=== PATIENT | male | born 1960 | race Caucasian/White ===

== ENCOUNTER 2016-09-14 14:08 | Emergency (ER) | payer MEDICARE, OTHER ==
[2016-09-14 14:42] VITALS: BP 143/93
--- NOTE | 2016-09-14 14:49 | UC ---
Respiratory Complaint HPI - HPI Summary HPI Summary: 55 year old patient presents with SOB at rest, post-nasal drip with light green mucus production, maxillary and ethmoid sinus congestion, pleuritic chest pain. First presenting symptoms was post nasal drip. Denies fever. - History of Current Complaint Chief Complaint: UCRespiratory Stated Complaint: COUGH Time Seen by Provider: 09/14/16 14:32 Hx Obtained From: Patient Onset/Duration: Gradual Onset Timing: Intermittent Episodes Severity Initially: Mild Character: Cough: Productive Associated Signs And Symptoms: Positive: Pleuritic Chest Pain, Nasal Congestion , Sinus Discomfort - Risk Factors Cardiac Risk Factors: Negative Pseudomonas Risk Factors: Negative Tuberculosis Risk Factors: Negative - Allergies/Home Medications Allergies/Adverse Reactions: Allergies Allergy/AdvReac Type Severity Reaction Status Date / Time Oxycodone AdvReac Intermediate GI Upset Verified 09/14/16 14:34 Home Medications: Home Medications Fluticasone Furoate-Vilanterol [Breo Ellipta 200-25 Mcg/INH] 1 inh IN DAILY 02/23 [History Confirmed 09/14/16] PMH/Surg Hx/FS Hx/Imm Hx Respiratory History Of: Reports: COPD GI/ History Of: Denies: Gastroesophageal Reflux Neurological History Of: Denies: TIA - Surgical History Surgical History: Yes Surgery Procedure, Year, and Place: fx jaw. Appendectomy - Social History Alcohol Use: None Substance Use Type: None Smoking Status (MU): Never Smoked Tobacco - Immunization History Most Recent Influenza Vaccination: has not had Most Recent Pneumonia Vaccination: 2013 Review of Systems Constitutional: Fatigue Skin: Negative Eyes: Negative ENT: Ear Ache, Nasal Discharge Respiratory: Shortness Of Breath, Cough Cardiovascular: Negative Gastrointestinal: Negative Genitourinary: Negative Motor: Negative Neurovascular: Negative Musculoskeletal: Negative Neurological: Negative Psychological: Negative All Other Systems Reviewed And Are Negative: Yes Physical Exam Triage Information Reviewed: Yes Appearance: Well-Appearing Vital Signs: Initial Vital Signs Temp 98.5 F 09/14/16 14:23 Pulse 89 09/14/16 14:23 Resp 16 09/14/16 14:23 BP 143/93 09/14/16 14:23 Pulse Ox 96 09/14/16 14:23 Vital Signs Reviewed: Yes Eye Exam: Normal Eyes: Positive: Conjunctiva Clear ENT: Positive: Pharynx normal, Nasal congestion, Nasal drainage, TMs normal Dental Exam: Normal Neck exam: Normal Neck: Positive: Supple, Nontender, No Lymphadenopathy Respiratory: Positive: Lungs clear, Normal breath sounds, No accessory muscle use, Decreased breath sounds, Other: - tenderness to touch Cardiovascular Exam: Normal Cardiovascular: Positive: RRR, No Murmur, Pulses Normal Abdominal Exam: Normal Abdomen Description: Positive: Nontender Bowel Sounds: Positive: Present Musculoskeletal Exam: Normal Musculoskeletal: Positive: Strength Intact Neurological Exam: Normal Neurological: Positive: Alert Psychological Exam: Normal Skin Exam: Normal UC Diagnostic Evaluation - Laboratory O2 Sat by Pulse Oximetry: 96 Re-Evaluation - Re-Evaluation First Eval Re-Evaluation Time: 15:25 Change: Improved - Audible breath sounds, dimished in the left posterior base, no accessory muscle use Respiratory Course/Dx - Differential Dx/Diagnosis Provider Diagnoses: Upper Respiratory Infection/COPD Discharge - Discharge Plan Condition: Stable Disposition: HOME Prescriptions: Azithromycin TAB* [Zithromax TAB*] 250 mg PO SEE INSTRUCTIONS #6 tab predniSONE TAB* [Deltasone TAB*] 50 mg PO DAILY #5 tab Patient Education Materials: COPD (Chronic Obstructive Pulmonary Disease) (ED) Referrals: SUNIL Lopez [Primary Care Provider] -
[2016-09-14] MEDS ORDERED: Albuterol/Ipratropium NEB.SOL* Albuterol 2.5 MG/Ipratropium 0.5 MG 3 ML INH ONE (14:59)
== END 2016-09-14 15:37 | disposition home or self-care (01) ==
LOC: UCCORT 14:08
DX: J06.9 Acute upper respiratory infection, unspecified (principal); J44.9 Chronic obstructive pulmonary disease, unspecified; Z88.5 Allergy status to narcotic agent
CPT/HCPCS: 99211; A9270-GY; G0463

== ENCOUNTER 2016-12-18 12:48 | Emergency (ER) | payer MEDICARE ==
[2016-12-18 13:03] VITALS: BP 136/70
--- NOTE | 2016-12-18 13:23 | UC ---
Respiratory Complaint HPI - HPI Summary HPI Summary: COUGH X 7 DAYS + CHEST CONGESTION , SOB , NO FEVER, NO CHILLS ? HX OF COPD - History of Current Complaint Chief Complaint: UCRespiratory Stated Complaint: SINUS,TROUBLE BREATHING Time Seen by Provider: 12/18/16 13:11 Hx Obtained From: Patient Onset/Duration: Gradual Onset, Lasting Days - 7, Still Present Timing: Constant Severity Initially: Moderate Severity Currently: Moderate Character: Cough: Nonproductive Aggravating Factors: Exertion, Deep Breaths Alleviating Factors: Nothing Associated Signs And Symptoms: Positive: Dyspnea, Wheezing, URI, Nasal Congestion - Allergies/Home Medications Allergies/Adverse Reactions: Allergies Allergy/AdvReac Type Severity Reaction Status Date / Time Oxycodone AdvReac Intermediate GI Upset Verified 12/18/16 13:03 Home Medications: Home Medications Umeclidinium [place] [Incruse Ellipta] 62.5 mcg IN QA 12/18/16 [History Confirmed 12/18/16] PMH/Surg Hx/FS Hx/Imm Hx Respiratory History Of: Reports: COPD GI/ History Of: Denies: Gastroesophageal Reflux Neurological History Of: Denies: TIA - Surgical History Surgical History: Yes Surgery Procedure, Year, and Place: fx jaw. Appendectomy - Family History Known Family History: Negative: Diabetes - Social History Alcohol Use: None Substance Use Type: None Smoking Status (MU): Never Smoked Tobacco - Immunization History Most Recent Influenza Vaccination: has not had Most Recent Pneumonia Vaccination: 2013 Review of Systems Constitutional: Chills, Fatigue Skin: Negative Eyes: Negative ENT: Nasal Discharge Respiratory: Shortness Of Breath, Cough Cardiovascular: Negative Gastrointestinal: Negative All Other Systems Reviewed And Are Negative: Yes Physical Exam Triage Information Reviewed: Yes Appearance: Well-Appearing, No Pain Distress, Well-Nourished Vital Signs: Initial Vital Signs Temp 99.1 F 12/18/16 12:54 Pulse 88 12/18/16 12:54 Resp 20 12/18/16 12:54 BP 136/70 12/18/16 12:54 Pulse Ox 95 12/18/16 12:54 Vital Signs Reviewed: Yes Eye Exam: Normal Eyes: Positive: Conjunctiva Clear ENT: Positive: Normal ENT inspection, Hearing grossly normal, Pharynx normal, TMs normal. Negative: Nasal congestion, Nasal drainage Neck exam: Normal Neck: Positive: Supple, Nontender, No Lymphadenopathy Respiratory: Positive: Chest non-tender, Decreased breath sounds Cardiovascular: Positive: RRR, No Murmur, Pulses Normal Skin Exam: Normal UC Diagnostic Evaluation - Laboratory O2 Sat by Pulse Oximetry: 95 Respiratory Course/Dx - Differential Dx/Diagnosis Provider Diagnoses: BRONCHITIS Discharge - Discharge Plan Condition: Stable Disposition: HOME Prescriptions: Azithromycin TAB* [Zithromax TAB (Z-KATHY) 250 mg #6 tabs] 2 tab PO .TODAY, THEN 1 DAILY #1 kathy predniSONE TAB* [Deltasone TAB*] 40 mg PO DAILY #10 tab Patient Education Materials: Acute Bronchitis (ED) Referrals: SUNIL Lopez [Primary Care Provider] - 7 Days
== END 2016-12-18 13:51 | disposition home or self-care (01) ==
LOC: UCCORT 12:48
DX: J40 Bronchitis, not specified as acute or chronic (principal); Z88.5 Allergy status to narcotic agent
CPT/HCPCS: 99212; G0463

== ENCOUNTER 2016-12-25 12:05 | Emergency (ER) | payer MEDICARE ==
[2016-12-25 12:45] VITALS: BP 135/86
--- NOTE | 2016-12-25 12:59 | UC ---
Respiratory Complaint HPI - HPI Summary HPI Summary: cough x 2 weeks. productive, with yellow sputum. was seen at the urgent care one week ago , was placed on zpak and prednisone some improvement at first but now the cough is getting bad again no fever, no chills , + nasal congestion , + SOB - History of Current Complaint Chief Complaint: UCRespiratory Stated Complaint: RE CHECK COUGH,CHEST CONGESTION Time Seen by Provider: 12/25/16 12:36 Hx Obtained From: Patient Onset/Duration: Gradual Onset, Lasting Days - 14, Still Present Timing: Constant Severity Initially: Moderate Severity Currently: Moderate Character: Cough: Productive - yellow Aggravating Factors: Exertion, Deep Breaths Alleviating Factors: Nothing Associated Signs And Symptoms: Positive: Dyspnea, Fever, Chills, Wheezing, URI, Nasal Congestion - Allergies/Home Medications Allergies/Adverse Reactions: Allergies Allergy/AdvReac Type Severity Reaction Status Date / Time Oxycodone AdvReac Intermediate GI Upset Verified 12/25/16 12:39 PMH/Surg Hx/FS Hx/Imm Hx Respiratory History Of: Reports: COPD GI/ History Of: Denies: Gastroesophageal Reflux Neurological History Of: Denies: TIA - Surgical History Surgical History: Yes Surgery Procedure, Year, and Place: fx jaw. Appendectomy - Family History Known Family History: Negative: Diabetes - Social History Alcohol Use: None Substance Use Type: None Smoking Status (MU): Never Smoked Tobacco - Immunization History Most Recent Influenza Vaccination: has not had Most Recent Pneumonia Vaccination: 2013 Review of Systems Constitutional: Fever, Chills, Fatigue Skin: Negative Eyes: Negative ENT: Nasal Discharge Respiratory: Shortness Of Breath, Cough Cardiovascular: Negative Gastrointestinal: Negative All Other Systems Reviewed And Are Negative: Yes Physical Exam Triage Information Reviewed: Yes Appearance: Well-Appearing, No Pain Distress, Well-Nourished Vital Signs: Initial Vital Signs Temp 99.1 F 12/25/16 12:41 Pulse 82 12/25/16 12:41 Resp 18 12/25/16 12:41 BP 135/86 12/25/16 12:41 Pulse Ox 96 12/25/16 12:41 Vital Signs Reviewed: Yes Eye Exam: Normal Eyes: Positive: Conjunctiva Clear ENT: Positive: Normal ENT inspection, Hearing grossly normal, Nasal congestion Neck: Positive: Supple, Nontender, No Lymphadenopathy Respiratory: Positive: Chest non-tender, Lungs clear, Normal breath sounds, No respiratory distress Cardiovascular: Positive: RRR, No Murmur, Pulses Normal Skin Exam: Normal UC Diagnostic Evaluation - Laboratory O2 Sat by Pulse Oximetry: 96 Diagnostic Studies Comment: chest xray : + small right side infiltrate Respiratory Course/Dx - Differential Dx/Diagnosis Provider Diagnoses: pneumonia Discharge - Discharge Plan Condition: Stable Disposition: HOME Prescriptions: Levofloxacin TAB* [Levaquin TAB*] 500 mg PO DAILY #10 tab Patient Education Materials: Pneumonia (ED) Referrals: SUNIL Lopez [Primary Care Provider] - 7 Days
--- NOTE | 2016-12-25 13:12 | RAD ---
INDICATION: Cough COMPARISON: October 09, 2014 TECHNIQUE: PA and lateral dual-energy views were obtained. FINDINGS: Bones/Soft Tissues: There are no acute bony findings. Cardiomediastinal: The cardiomediastinal silhouette is normal. Lungs: There is a small interstitial infiltrate in the inferior segment of the right upper lobe and in the right middle lobe. There are no other infiltrates. Pleura: There are no pleural effusions. Other: None IMPRESSION: Small right-sided infiltrates.
== END 2016-12-25 13:31 | disposition home or self-care (01) ==
LOC: UCCORT 12:05
DX: J18.9 Pneumonia, unspecified organism (principal); Z88.5 Allergy status to narcotic agent; J44.9 Chronic obstructive pulmonary disease, unspecified
CPT/HCPCS: 71020; 99212; G0463

== ENCOUNTER 2017-06-05 12:25 | Emergency (ER) | payer MEDICARE ==
[2017-06-05 13:25] VITALS: BP 133/91
--- NOTE | 2017-06-05 13:49 | UC ---
Dental HPI - HPI Summary HPI Summary: he has had dental pain since Saturday. He filled bought a bottle of tylenol 650mg tabs on saturday night and has taken 42 of then since. He does nto have dental insurance and was trying to deal with the pain. He now has swelling and tenderness of the right face along with swelling and trismus. - History of Current Complaint Chief Complaint: UCDentalProblem Stated Complaint: ORAL/JAW PAIN Time Seen by Provider: 06/05/17 13:35 Hx Obtained From: Patient Onset/Duration: Gradual Onset, Lasting Days Severity: Severe Aggravating Factor(s): Chewing Alleviating Factor(s): OTC Meds Related History: Swelling - Allergies/Home Medications Allergies/Adverse Reactions: Allergies Allergy/AdvReac Type Severity Reaction Status Date / Time Oxycodone AdvReac Intermediate GI Upset Verified 06/05/17 13:15 Home Medications: Home Medications Acetaminophen [Tylenol] 650 mg PO Q2H PRN 06/05/17 [History Confirmed 06/05/17] Amphetamine-Dextroamphetamine [Adderall 5 mg-] 25 mg PO DAILY 06/05/17 [History Confirmed 06/05/17] PMH/Surg Hx/FS Hx/Imm Hx Previously Healthy: No - adhd. - Surgical History Surgical History: Yes Surgery Procedure, Year, and Place: fx jaw. Appendectomy - Family History Known Family History: Negative: Diabetes - Social History Occupation: Employed Full-time Alcohol Use: None Substance Use Type: None Smoking Status (MU): Never Smoked Tobacco - Immunization History Most Recent Influenza Vaccination: has not had Most Recent Pneumonia Vaccination: 2013 Review of Systems ENT: Dental Pain All Other Systems Reviewed And Are Negative: Yes Physical Exam Triage Information Reviewed: Yes Appearance: Well-Appearing, No Pain Distress, Well-Nourished Vital Signs: Initial Vital Signs Temp 98.3 F 06/05/17 13:22 Pulse 81 06/05/17 13:22 Resp 16 06/05/17 13:22 BP 133/91 06/05/17 13:22 Pulse Ox 96 06/05/17 13:22 Vital Signs Reviewed: Yes Eyes: Positive: Conjunctiva Clear ENT: Positive: Trismus, Other: - right maxilla and lower jaw tenderness and swelling. there is severe dental decay of the right lower jaw/teeth. Neck exam: Normal Neck: Positive: Tenderness @, Enlarged Nodes @ - right submandibular. Respiratory: Positive: No respiratory distress, No accessory muscle use Cardiovascular: Positive: Brisk Capillary Refill Abdomen Description: Positive: Other: - ruq tenderness. Musculoskeletal: Positive: Strength Intact, ROM Intact, No Edema Neurological: Positive: Alert, Muscle Tone Normal Skin: Negative: rashes Dental Complaint Course/Dx - Course Course Of Treatment: he has had 37K of tylenol in less than 48 hours. he will need IV antibiotics and a tylenol level. - Differential Dx/Diagnosis Provider Diagnoses: unintentional tylenol overdose. dental abcess. Discharge - Discharge Plan Condition: Guarded Disposition: TRANS HIGHER LVL OF CARE FAC Referrals: SUNIL Lopez [Primary Care Provider] -
--- NOTE | 2017-06-05 13:56 | ED ---
Progress - Progress Note Progress Note: D/w bria sage at [facility] for transfer. Course/Dx - Course Course Of Treatment: he has had 37K of tylenol in less than 48 hours. he will need IV antibiotics and a tylenol level. - Diagnoses Provider Diagnoses: Tylenol overdose
== END 2017-06-05 13:52 ==
LOC: UCCORT 12:25
DX: K04.7 Periapical abscess without sinus (principal); T39.1X1A Poisoning by 4-Aminophenol derivatives, accidental (unintentional), initial encounter; Y92.9 Unspecified place or not applicable
CPT/HCPCS: 99211; G0463

== ENCOUNTER 2018-03-26 10:10 | Emergency (ER) | payer MEDICARE ==
--- NOTE | 2018-03-26 10:44 | UC ---
Respiratory Complaint HPI - HPI Summary HPI Summary: Cough and congestion for about 10 days. he says this is similar to prior bronchitis. he has copd and has been compliant with BReo and rescue inhalers. No fever. No hemoptysis. No calf pain. - History of Current Complaint Stated Complaint: COUGH, CONGESTION Time Seen by Provider: 03/26/18 10:34 Hx Obtained From: Patient Onset/Duration: Gradual Onset, Lasting Days Timing: Constant Severity Initially: Moderate Severity Currently: Moderate Character: Cough: Nonproductive Aggravating Factors: Deep Breaths, Recumbent Position Alleviating Factors: Upright Position, Spontaneous Resolution Associated Signs And Symptoms: Positive: Wheezing, URI, Nasal Congestion, Hoarseness. Negative: Fever, Chills, Pleuritic Chest Pain, Hemoptysis, Calf Pain, Calf Swelling - Allergies/Home Medications Allergies/Adverse Reactions: Allergies Allergy/AdvReac Type Severity Reaction Status Date / Time oxycodone Allergy GI Upset Verified 03/26/18 10:39 Home Medications: Home Medications Atomoxetine HCl [Strattera] 80 mg PO DAILY 03/26/18 [History Confirmed 03/26/18] PMH/Surg Hx/FS Hx/Imm Hx Previously Healthy: No - copd - Surgical History Surgical History: Yes Surgery Procedure, Year, and Place: fx jaw. Appendectomy - Family History Known Family History: Negative: Diabetes - Social History Alcohol Use: None Substance Use Type: None Smoking Status (MU): Never Smoked Tobacco - Immunization History Most Recent Influenza Vaccination: has not had Most Recent Pneumonia Vaccination: 2013 Review of Systems ENT: Sinus Congestion Respiratory: Cough All Other Systems Reviewed And Are Negative: Yes Physical Exam Triage Information Reviewed: Yes Appearance: Well-Appearing, No Pain Distress, Well-Nourished Vital Signs Reviewed: Yes Eye Exam: Normal Eyes: Negative: Conjunctiva Clear, Conjunctiva Inflamed ENT: Positive: Normal ENT inspection, Hearing grossly normal, Pharynx normal, Nasal congestion, TMs normal, Hoarse voice, Uvula midline. Negative: Pharyngeal erythema, TM bulging, TM dull, TM red, Tonsillar swelling, Tonsillar exudate, Trismus, Muffled voice, Dental tenderness, Sinus tenderness Neck: Positive: Supple, Nontender, No Lymphadenopathy Respiratory: Positive: Lungs clear - Frequent dry cough., Normal breath sounds, No respiratory distress, No accessory muscle use. Negative: Respiratory distress, Decreased breath sounds, Accessory muscle use, Crackles, Rhonchi, Stridor, Wheezing Cardiovascular: Positive: No Murmur, Pulses Normal, Brisk Capillary Refill Abdomen Description: Positive: No Organomegaly, Soft. Negative: Distended, Guarding Musculoskeletal: Positive: Strength Intact, ROM Intact, No Edema Neurological: Positive: Alert, Muscle Tone Normal. Negative: Fatigued Psychological: Positive: Age Appropriate Behavior Skin: Negative: rashes Respiratory Course/Dx - Course Course Of Treatment: No distress but there is frequent cough and this has been 10 days. He agrees to return for any worsening. - Differential Dx/Diagnosis Provider Diagnoses: acute bronchitis. Discharge - Sign-Out/Discharge Documenting (check all that apply): Patient Departure - Discharge Plan Condition: Stable Disposition: HOME Prescriptions: Azithromyxin KATHY (NF) [Z-Kathy (Zithromax) 250 mg tabs #6] 2 tab PO .TODAY, THEN 1 DAILY #6 tab methylPREDNISolone [Medrol] 4 mg PO DAILY #21 tab.[id number].[email or web address] Patient Education Materials: Acute Bronchitis (ED) Referrals: Quentin Luo MD [Primary Care Provider] - - Billing Disposition and Condition Condition: STABLE Disposition: Home
[2018-03-26 10:45] VITALS: BP 148/87
== END 2018-03-26 10:46 | disposition home or self-care (01) ==
LOC: UCCORT 10:10
DX: J20.9 Acute bronchitis, unspecified (principal); J44.9 Chronic obstructive pulmonary disease, unspecified; Z88.5 Allergy status to narcotic agent
CPT/HCPCS: 99212; G0463

== ENCOUNTER 2018-04-23 19:52 | Emergency (ER) | payer MEDICARE ==
[2018-04-23 20:10] VITALS: BP 143/90
--- NOTE | 2018-04-23 20:16 | UC ---
Respiratory Complaint HPI - HPI Summary HPI Summary: The patient is a 57-year-old male with a history of COPD. He states that he has had worsening breathing over the past few days. He denies any fever or chills. He does feel somewhat short of breath. He has been admitted in the past for trouble breathing. Denies ever being intubated. He has had to take steroids in the past. He denies any chest pain. - History of Current Complaint Stated Complaint: TROUBLE BREATHING Time Seen by Provider: 04/23/18 20:05 Hx Obtained From: Patient Onset/Duration: Sudden Onset, Lasting Days Timing: Constant Severity Initially: Mild Severity Currently: Moderate Pain Intensity: 0 Pain Scale Used: 0-10 Numeric Character: Cough: Nonproductive Aggravating Factors: Deep Breaths Alleviating Factors: Bronchodilator Associated Signs And Symptoms: Positive: Wheezing - Allergies/Home Medications Allergies/Adverse Reactions: Allergies Allergy/AdvReac Type Severity Reaction Status Date / Time oxycodone Allergy GI Upset Verified 04/23/18 20:10 PMH/Surg Hx/FS Hx/Imm Hx Previously Healthy: Yes Respiratory History: COPD, Bronchitis, Pneumonia - Surgical History Surgical History: Yes Surgery Procedure, Year, and Place: fx jaw. Appendectomy. left wrist. left leg - Family History Known Family History: Positive: Hypertension Negative: Diabetes - Social History Alcohol Use: None Substance Use Type: None Smoking Status (MU): Never Smoked Tobacco When Did the Patient Quit Smoking/Using Tobacco: 9 years ago- cigar - Immunization History Most Recent Influenza Vaccination: has not had Most Recent Pneumonia Vaccination: 2013 Review of Systems Constitutional: Negative Skin: Negative Eyes: Negative ENT: Negative Respiratory: Shortness Of Breath, Cough Cardiovascular: Negative Gastrointestinal: Negative Genitourinary: Negative Motor: Negative Neurovascular: Negative Musculoskeletal: Negative Neurological: Negative Psychological: Negative Is Patient Immunocompromised?: No All Other Systems Reviewed And Are Negative: Yes Physical Exam Triage Information Reviewed: Yes Appearance: Well-Appearing, No Pain Distress, Well-Nourished Vital Signs: Initial Vital Signs Temp 99.2 F 04/23/18 20:07 Pulse 100 04/23/18 20:07 Resp 20 04/23/18 20:07 BP 143/90 04/23/18 20:07 Pulse Ox 97 04/23/18 20:07 Eye Exam: Normal ENT: Positive: Hearing grossly normal. Negative: Nasal congestion, Nasal drainage, Trismus, Muffled voice, Hoarse voice Neck: Positive: Supple, Nontender Respiratory: Positive: No respiratory distress, No accessory muscle use, Wheezing Cardiovascular: Positive: RRR, No Murmur Musculoskeletal: Positive: ROM Intact, No Edema Neurological: Positive: Alert Psychological Exam: Normal Skin Exam: Normal UC Diagnostic Evaluation - Laboratory O2 Sat by Pulse Oximetry: 97 - normal/not hypoxic Re-Evaluation - Re-Evaluation First Eval Re-Evaluation Time: 20:59 Change: Improved - better air movement/no wheezing Respiratory Course/Dx - Differential Dx/Diagnosis Provider Diagnoses: acute exacerbation of COPD Discharge - Sign-Out/Discharge Documenting (check all that apply): Patient Departure - Discharge Plan Condition: Stable Disposition: HOME Referrals: Quentin Luo MD [Primary Care Provider] - - Billing Disposition and Condition Condition: STABLE Disposition: Home
[2018-04-23] MEDS ORDERED: Albuterol 2.5 MG/3 ML NEB.SOL* (0.083%) INH ONE (20:21)
[2018-04-23] MEDS ORDERED: Ipratropium 0.5MG/2.5ML NEB* 0.5 MG/2.5 ML NEB.SOLN INH ONE (20:21)
[2018-04-23] MEDS ORDERED: predniSONE TAB* 20 MG PO ONE (20:21)
[2018-04-23] MEDS ORDERED: Azithromycin TAB* 250 MG PO ONE (20:21)
== END 2018-04-23 21:13 | disposition home or self-care (01) ==
LOC: UCCORT 19:52
DX: J44.1 Chronic obstructive pulmonary disease with (acute) exacerbation (principal); Z88.5 Allergy status to narcotic agent
CPT/HCPCS: 93005; 99213; A9270-GY; G0463; J7512

== ENCOUNTER 2018-04-29 19:11 | Emergency (ER) | payer MEDICARE ==
[2018-04-29 20:19] VITALS: BP 135/85
[2018-04-29] MEDS ORDERED: Albuterol/Ipratropium NEB.SOL* Albuterol 2.5 MG/Ipratropium 0.5 MG 3 ML INH ONE (20:31)
--- NOTE | 2018-04-29 20:33 | UC ---
Respiratory Complaint HPI - HPI Summary HPI Summary: Pt presents with worsening cough. Pt was seen here on 04/23/18 with c/o cough and chest congestion. Pt was diagnosed with acute bronchitis and given prednisone, and z-pac. Pt reports that he began to feel better ~ two days after taking medication but after completing medications , he began to cough again, now feels like cough is worsening. - History of Current Complaint Chief Complaint: UCGeneralIllness Stated Complaint: RESPIRATORY Time Seen by Provider: 04/29/18 20:28 Hx Obtained From: Patient Onset/Duration: Gradual Onset, Lasting Days, Still Present, Worse Since - onset Timing: Intermittent Episodes Severity Initially: Mild Severity Currently: Moderate Pain Intensity: 0 Character: Cough: Nonproductive Aggravating Factors: Exertion, Deep Breaths, Recumbent Position Alleviating Factors: Nothing Associated Signs And Symptoms: Positive: Wheezing, URI - Risk Factors Pulmonary Embolism Risk Factors: Negative Cardiac Risk Factors: Negative Pseudomonas Risk Factors: Negative Tuberculosis Risk Factors: Corticosteriod Use - recent RX - Allergies/Home Medications Allergies/Adverse Reactions: Allergies Allergy/AdvReac Type Severity Reaction Status Date / Time oxycodone Allergy GI Upset Verified 04/29/18 20:19 PMH/Surg Hx/FS Hx/Imm Hx Previously Healthy: Yes - Surgical History Surgical History: Yes Surgery Procedure, Year, and Place: fx jaw. Appendectomy. left wrist. left leg - Family History Known Family History: Positive: Hypertension Negative: Diabetes - Social History Occupation: Employed Full-time Lives: With Family Alcohol Use: None Substance Use Type: None Smoking Status (MU): Never Smoked Tobacco Have You Smoked in the Last Year: No When Did the Patient Quit Smoking/Using Tobacco: 9 years ago- cigar - Immunization History Most Recent Influenza Vaccination: has not had Most Recent Pneumonia Vaccination: 2013 Review of Systems Constitutional: Negative Skin: Negative Eyes: Negative ENT: Negative Respiratory: Cough Cardiovascular: Negative Gastrointestinal: Negative Genitourinary: Negative Motor: Negative Neurovascular: Negative Musculoskeletal: Negative Neurological: Negative Psychological: Negative Is Patient Immunocompromised?: No All Other Systems Reviewed And Are Negative: Yes Physical Exam Triage Information Reviewed: Yes Appearance: Ill-Appearing Vital Signs: Initial Vital Signs Temp 98.8 F 04/29/18 20:14 Pulse 92 04/29/18 20:14 Resp 18 04/29/18 20:14 BP 135/85 04/29/18 20:14 Pulse Ox 95 04/29/18 20:14 Vital Signs Reviewed: Yes Eye Exam: Normal ENT Exam: Normal Neck exam: Normal Respiratory: Positive: Wheezing Cardiovascular Exam: Normal Musculoskeletal Exam: Normal Neurological Exam: Normal Psychological Exam: Normal Skin Exam: Normal UC Diagnostic Evaluation - Laboratory O2 Sat by Pulse Oximetry: 95 Respiratory Course/Dx - Course Course Of Treatment: Xray not read by radilogist. My interpretation: Left lower lobe infiltrate - Differential Dx/Diagnosis Differential Diagnosis/HQI/PQRI: Bronchitis, Exacerbation Of COPD Provider Diagnoses: pneumonia Discharge - Sign-Out/Discharge Documenting (check all that apply): Patient Departure All imaging exams completed and their final reports reviewed: No - Discharge Plan Condition: Stable Disposition: HOME-RECOMMEND TO ED Prescriptions: Albuterol 2.5MG/3ML (0.083%)* [Ventolin 2.5 MG/3 ML NEB.MOIZ*] 2.5 mg INH Q4H #1 box Cetirizine* [ZyrTEC 10 MG TAB*] 10 mg PO DAILY #10 tab DOXYcycline CAP(*) [DOXYcycline 100MG CAP(*)] 100 mg PO Q12H #20 cap predniSONE TAB* [Deltasone 10 MG TAB*] 30 mg PO DAILY #12 tab Patient Education Materials: Pneumonia (ED) Referrals: Quentin Luo MD [Primary Care Provider] - As Soon As Possible Additional Instructions: It is recommended that you go to the Emergency room for further evaluation, testing and treatment. - Billing Disposition and Condition Condition: STABLE Disposition: Home-Recommend to ED Attestation Statement User Type: Provider - I was available for consult. This patient was seen by the JHONY. The patient was not presented to, seen by, or examined by me. -Taj
[2018-04-29] MEDS ORDERED: predniSONE TAB* 20 MG PO ONE (21:18)
[2018-04-29] MEDS ORDERED: Benzonatate CAP* 100 MG PO ONE (21:22)
[2018-04-29] MEDS ORDERED: DOXYcycline CAP(*) 100 MG PO ONE (21:23)
--- NOTE | 2018-04-30 08:05 | RAD ---
INDICATION: Shortness of breath wheezing and cough. COMPARISON: Comparison is made with prior chest x-ray studies from July 09, 2015 and December 25, 2016. TECHNIQUE: Dual-energy PA and lateral views of the chest were obtained. FINDINGS: The heart is within normal limits in size. Mediastinal and hilar contours appear within normal limits. There is a patchy infiltrate present in the mid and lower right lung field and a small infiltrate at the left lung base. No pleural effusion is seen. The results of this exam were called to Dr. Doherty. IMPRESSION: BILATERAL INFILTRATES. R1
--- NOTE | 2018-04-30 09:46 | UC ---
- Progress Note Progress Note: Pt on doxy, dx PNA Patient Name: GIRISH GIBSON Medical Record#: [id number] Ordering Physician: Emily Cage OPHTHALMOLOGY SURGICAL TECHNICIAN Acct.#: [id number] : 1960 Age: 57 Sex: M Location: [facility] Exam Date: 04/29/182050 ADM Status: DEP ER Order Information: CHEST PA & LAT 2 VWS Accession Number: [id number] CPT: 20009 INDICATION: Shortness of breath wheezing and cough. COMPARISON: Comparison is made with prior chest x-ray studies from July 09, 2015 and December 25, 2016. TECHNIQUE: Dual-energy PA and lateral views of the chest were obtained. FINDINGS: The heart is within normal limits in size. Mediastinal and hilar contours appear within normal limits. There is a patchy infiltrate present in the mid and lower right lung field and a small infiltrate at the left lung base. No pleural effusion is seen. The results of this exam were called to Dr. Doherty. IMPRESSION: BILATERAL INFILTRATES. R1 <Electronically signed by Derik Carreon MD in OV> 04/30/18 0801 Dictated By: Derik Carreon MD Dictated Date/Time: 04/30/18 0801 Transcribed Date/Time: 04/30/18 2617 Copy to: CC:Quentin Luo MD; Alesia Doherty MD; Emily Cage NP Imaging - [facility] Imaging - [facility] [facility] [address] [address] ph ([phone]) ph ([phone]) ph ([phone]) This report is only to be considered final once signed by the Provider(s) as displayed in the "<Electronically Signed by >" field (s). Absence of a signature indicates the report is in a draft status and still needs to be finalized. In the event this document was created by someone other than the signing Provider, the individual initiating the document will be listed in the "Entered by:" or "Dictated by:" núñez. 1 of 1 Discharge - Sign-Out/Discharge Documenting (check all that apply): Post-Discharge Follow Up All imaging exams completed and their final reports reviewed: Yes - Discharge Plan Condition: Stable Disposition: HOME-RECOMMEND TO ED Prescriptions: Albuterol 2.5MG/3ML (0.083%)* [Ventolin 2.5 MG/3 ML NEB.MOIZ*] 2.5 mg INH Q4H #1 box Cetirizine* [ZyrTEC 10 MG TAB*] 10 mg PO DAILY #10 tab DOXYcycline CAP(*) [DOXYcycline 100MG CAP(*)] 100 mg PO Q12H #20 cap predniSONE TAB* [Deltasone 10 MG TAB*] 30 mg PO DAILY #12 tab Patient Education Materials: Pneumonia (ED) Referrals: Quentin Luo MD [Primary Care Provider] - As Soon As Possible Additional Instructions: It is recommended that you go to the Emergency room for further evaluation, testing and treatment. - Billing Disposition and Condition Condition: STABLE Disposition: Home-Recommend to ED
== END 2018-04-29 21:41 | disposition home health service (06) ==
LOC: UCCORT 19:11
DX: Z88.5 Allergy status to narcotic agent (principal); J18.9 Pneumonia, unspecified organism
CPT/HCPCS: 71046; 99213; A9270-GY; G0463; J7512

== ENCOUNTER 2018-09-11 17:29 | Emergency (ER) | payer MEDICARE ==
[2018-09-11 18:05] VITALS: BP 149/104
--- NOTE | 2018-09-11 18:34 | ED ---
Respiratory - HPI Summary HPI Summary: 57 yr old male with the complaint of runny nose, post nasal drip, coughing. He feels like his COPD is getting exacerbated by his sinuses. He feels mildly short of breath. He denies fever, chills. Denies chest pain. Denies dizziness. Onset of symptoms over two weeks ago. He also has pressure in the left ear. - History of Current Complaint Chief Complaint: UCGeneralIllness Stated Complaint: COUGH Time Seen by Provider: 09/11/18 18:17 Pain Intensity: 7 - Allergy/Home Medications Allergies/Adverse Reactions: Allergies Allergy/AdvReac Type Severity Reaction Status Date / Time oxycodone Allergy GI Upset Verified 09/11/18 17:53 Home Medications: Home Medications Dextroamphetamine/Amphetamine [Adderall 20 mg Tablet] 1 tab PO DAILY 09/11/18 [ History Confirmed 09/11/18] PMH/Surg Hx/FS Hx/Imm Hx Endocrine/Hematology History: Reports: Hx Diabetes - pre Respiratory History: Reports: Hx Chronic Obstructive Pulmonary Disease (COPD) Neurological History: Denies: Hx Transient Ischemic Attacks (TIA) - Surgical History Surgery Procedure, Year, and Place: fx jaw. Appendectomy. left wrist. left leg Infectious Disease History: No Infectious Disease History: Denies: Hx Clostridium Difficile, Hx Hepatitis, Hx Human Immunodeficiency Virus (HIV), Hx of Known/Suspected MRSA, Hx Shingles, Hx Tuberculosis, Hx Known/ Suspected VRE, Hx Known/Suspected VRSA, History Other Infectious Disease, Traveled Outside the [place] in Last 30 Days - Family History Known Family History: Positive: Hypertension Negative: Diabetes - Social History Occupation: Employed Full-time Alcohol Use: None Substance Use Type: Reports: None Smoking Status (MU): Former Smoker Have You Smoked in the Last Year: No Review of Systems Constitutional: Negative Positive: Sore Throat, Nasal Discharge Positive: Cough All Other Systems Reviewed And Are Negative: Yes Physical Exam Triage Information Reviewed: Yes Vital Signs On Initial Exam: Initial Vitals Temp Pulse Resp BP Pulse Ox 98.4 F 87 16 149/104 96 09/11/18 17:59 09/11/18 17:59 09/11/18 17:59 09/11/18 17:59 09/11/18 17:59 Vital Signs Reviewed: Yes Appearance: Positive: Well-Appearing, No Pain Distress Skin: Positive: Warm, Skin Color Reflects Adequate Perfusion Head/Face: Positive: Normal Head/Face Inspection Eyes: Positive: EOMI ENT: Positive: Normal ENT inspection, Nasal congestion, Nasal drainage, TMs normal, Sinus tenderness Respiratory/Lung Sounds: Positive: Clear to Auscultation, Breath Sounds Present Cardiovascular: Positive: RRR. Negative: Murmur Abdomen Description: Negative: Distended Musculoskeletal: Positive: Strength/ROM Intact Neurological: Positive: Sensory/Motor Intact, Alert, Oriented to Person Place, Time, CN Intact II-III Psychiatric: Positive: Normal Diagnostics - Vital Signs Vital Signs Temp Pulse Resp BP Pulse Ox 09/11/18 17:59 98.4 F 87 16 149/104 96 - Laboratory Lab Statement: Any lab studies that have been ordered have been reviewed, and results considered in the medical decision making process. Disposition - Course Course Of Treatment: 57 yr old with sinusitis, and exacerbation of coughing and copd. refills of his inhalers, and nebs, steroids and biaxin given. - Diagnoses Provider Diagnoses: Sinusitis Discharge - Sign-Out/Discharge Documenting (check all that apply): Patient Departure All imaging exams completed and their final reports reviewed: No Studies - Discharge Plan Condition: Good Disposition: HOME Prescriptions: Albuterol 2.5MG/3ML (0.083%)* [Ventolin 2.5 MG/3 ML NEB.MOIZ*] 2.5 mg INH Q4H #1 box Albuterol HFA INHALER* [Ventolin HFA Inhaler*] 1 - 2 puff INH Q4H PRN #1 mdi PRN Reason: Shortness Of Breath Clarithromycin TAB* [Biaxin 500 MG TAB*] 500 mg PO BID #20 tab predniSONE TAB* [Deltasone 20 MG TAB*] 40 mg PO DAILY #8 tab Patient Education Materials: Sinusitis (ED), COPD (Chronic Obstructive Pulmonary Disease) (ED), Hypertension (ED) Referrals: Quentin Luo MD [Primary Care Provider] - 2 Days - Billing Disposition and Condition Condition: GOOD Disposition: Home
== END 2018-09-11 18:41 | disposition home or self-care (01) ==
LOC: UCCORT 17:29
DX: J32.9 Chronic sinusitis, unspecified (principal); Z88.5 Allergy status to narcotic agent; Z87.891 Personal history of nicotine dependence
CPT/HCPCS: 99212; G0463

== ENCOUNTER 2018-09-15 15:31 | Emergency (ER) | payer MEDICARE ==
[2018-09-15 15:58] VITALS: BP 138/81
--- NOTE | 2018-09-15 16:59 | UC ---
Throat Pain/Nasal [place] HPI - HPI Summary HPI Summary: Patient presents to urgent care for recheck of his congestion which has now settled in his chest. Patient was seen here on 09/11 and diagnosed with sinusitis. Patient was started on Biaxin 500 mg twice a day. Patient's been using this as well as an MDI. Patient states it's noticed chest. Patient's concerned he developing pneumonia. Patient states in the past the only thing that has worked for him is doxycycline. Patient states he is to get a Z-Dann that didn't help and he does not feel the Biaxin a strong enough. Patient states he's coughing up yellow sputum. Patient states he's wheezing. Patient is using a nebulizer with mild improvement. Patient denies fevers or chills. Patient states he has coughing paroxysms that wake him up at night. 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 Pt has been taking 1000mg Biaxin QAM because he thought would be "stronger"Patient states he 's been hospitalized with pneumonia in the past with concerned he's had it there again. Patient states he hears mostly wheezing on his right side. Patient states he had something similar in April and was treated with doxycycline that helped. Patient medications reviewed this visit. - History of Current Complaint Chief Complaint: UCRespiratory Stated Complaint: CHEST CONGESTION Time Seen by Provider: 09/15/18 16:56 Hx Obtained From: Patient, Medical Records Severity: Moderate Pain Intensity: 8 - Allergies/Home Medications Allergies/Adverse Reactions: Allergies Allergy/AdvReac Type Severity Reaction Status Date / Time oxycodone Allergy GI Upset Verified 09/15/18 15:58 PMH/Surg Hx/FS Hx/Imm Hx Previously Healthy: Yes Respiratory History: COPD - Surgical History Surgical History: Yes Surgery Procedure, Year, and Place: fx jaw. Appendectomy. left wrist. left leg - Family History Known Family History: Positive: Hypertension, Non-Contributory Negative: Diabetes - Social History Occupation: Disabled Lives: With Family Alcohol Use: None Substance Use Type: None Smoking Status (MU): Former Smoker Have You Smoked in the Last Year: No When Did the Patient Quit Smoking/Using Tobacco: 9 years ago- cigar - Immunization History Most Recent Influenza Vaccination: has not had Most Recent Pneumonia Vaccination: 2013 Review of Systems All Other Systems Reviewed And Are Negative: Yes Constitutional: Positive: Fatigue ENT: Positive: Nasal Discharge, Sinus Congestion Respiratory: Positive: Shortness Of Breath, Cough Cardiovascular: Positive: Negative Physical Exam - Summary Physical Exam Summary: Vital Signs Reviewed: Yes A+Ox3, coarse cough, intermittent Eyes: Conjunctiva Clear, ERNA. EOM intact and full ENT: Hearing grossly normal TM x 2 clear, turbinates inflammed, + PND, mmoist, uvula midline, no exudate, no erythema Neck: Positive: Supple Respiratory: Positive: coarse cough, wheeze, right sided rhonci Cardiovascular: RRR nl s1, s2 no m/r CBT <2 sec abd soft + BS nt/nd no guarding, no distension Musculoskeletal Exam: BELL x 4 without difficulty Strength Intact, ROM Intact Neurological: Positive: Alert, + sensation throughout Psychological: Positive: Normal Response To Family Skin: Positive: no rash, no ecchymosis Vital Signs: Initial Vital Signs Temp 98.3 F 09/15/18 15:53 Pulse 97 09/15/18 15:53 Resp 16 09/15/18 15:53 BP 138/81 09/15/18 15:53 Pulse Ox 95 09/15/18 15:53 Re-Evaluation - Re-Evaluation First Eval Change: Improved - Pt improved following neb, cleared BS Will Rx Doxy recommend yogurt/probiotics neb Q4hr pred with taper PCP recheck strict return precautions Pt in agreement with plan Throat Pain/Nasal Course/Dx - Course Assessment/Plan: Pt with progressive cough and wheeze - pt on Biaxin for sinusitis - not taking as prescribed because did not think strong enough. Pt with underlying lung dx. On exam, coarse cough and increased right side breath sounds. recommend neb and reassess. likely change to doxy. neb. pred. strict return precautions - Differential Dx/Diagnosis Provider Diagnosis: Acute bronchitis Discharge - Sign-Out/Discharge Documenting (check all that apply): Patient Departure All imaging exams completed and their final reports reviewed: No Studies - Discharge Plan Condition: Stable Disposition: HOME Prescriptions: DOXYcycline CAP(*) [DOXYcycline 100MG CAP(*)] 100 mg PO BID #20 cap predniSONE TAB* [Deltasone 20 MG TAB*] 20 mg PO DAILY #13 tab Patient Education Materials: Acute Bronchitis (ED), COPD (Chronic Obstructive Pulmonary Disease) (ED) Print Language: BELARUSIAN Referrals: Quentin Luo MD [Primary Care Provider] - Additional Instructions: -STOP taking Biaxin - antibiotic given at your previous visit - take antibiotics prescribed today EXACTLY as prescribed until gone -Use your albuterol nebulizer every 4 hours for the next 2 days - then as needed - Take prednisone EXACTLY as prescribed until gone -Stay well hydrated - avoid excess caffeine and all alcohol - eat regular, healthy meals - - humidify the air in the room where you sleep - boil water, run a hot steam shower, vaporizer, cups of water by heat register - okay to take over the counter decongestant and cough medication -- These infections are spread by secretions - do NOT share eating or drinking utensils - clean items you share with other people such as cell phones, computer mouse, TV remote, computer tablets,etc.. Once you have been antibiotics for 2 days, change your toothbrush and your pillowcase. - It is recomended you eat yogurt and take a pro-biotic to help with diarrhea related to 2 different antibiotics in 1 week -Contact your doctor tomorrow to arrange a follow-up appointment later this week. Call your doctor, return here or go to the emergency department with any questions or concerns - Billing Disposition and Condition Condition: STABLE Disposition: Home
[2018-09-15] MEDS ORDERED: Albuterol/Ipratropium NEB.SOL* Albuterol 2.5 MG/Ipratropium 0.5 MG 3 ML INH ONE (17:08)
== END 2018-09-15 17:44 | disposition home or self-care (01) ==
LOC: UCCORT 15:31
DX: J20.9 Acute bronchitis, unspecified (principal); Z88.5 Allergy status to narcotic agent; Z87.891 Personal history of nicotine dependence
CPT/HCPCS: 99212; A9270-GY; G0463